=== PATIENT | female | born 1970 | race Caucasian/White ===

== ENCOUNTER 2018-03-03 08:50 | Inpatient (IN) | payer SELFPAY ==
[~2018-03-03] VITALS: Ht 154.9 cm; Wt 78.5 kg
[~2018-03-03 08:50] MED LIST: AUGMENTIN 250-1 EACH PO; CITALOPRAM HBR20 MG PO; DEPAKOTE500 MG PO; DESYREL100 MG PO; DITROPAN XL15 MG PO; DIVALPROEX SOD500 MG PO; FIORICET,ESG1 TABLET PO; FLEXERIL10 MG PO; FLONASE16 G1 BOTH NARES; HA MED; IMITREX6 MG/0.5 M SC; INDERAL80 MG PO; LORTAB 5-500 T1 EAC1 PO; LYRICA150 MG PO; NAPROXEN500 MG PO; PERCOCET 10/1 TABLET PO; PERCOCET 5/31 TABLET PO; PREDNISONE20 MG PO; PROVENTIL HFA6.7 GM IH; TOPAMAX200 MG PO; VALIUM2 MG PO; WELLBUTRIN100 MG PO
[2018-03-03 09:43] LABS: HEMATOCRIT 39.6 % (36.0-46.0); HEMOGLOBIN 13.4 G/DL (11.9-15.5); MCHC 33.8 G/DL (30.0-36.0); MCV 91.7 FL (83-99); PLATELET COUNT 248 K/uL (156-360); RBC DIS.WIDTH-CV 12.6 % (11.8-14.6); RBC DIS.WIDTH-SD 42.2 % (39-53); RED BLOOD COUNT 4.32 M/uL (3.80-5.20); WHITE BLOOD COUNT 7.2 K/uL (4.1-10.2)
[2018-03-03 10:06] LABS: TROP-I INTERPRETATION NEGATIVE; TROPONIN-I < 0.01 ng/mL (0.0-0.30)
[2018-03-03 10:07] LABS: QUANTITATIVE HCG < 4.0 MIU/ML
[2018-03-03 10:15] LABS: CHLORIDE 108 MEQ/L (99-109); CREATININE 0.7 MG/DL (0.6-1.3); GFR ESTIMATE (CALCULATED) > 59 mL/min/; GLUCOSE 109 mg/dL (70-99); POTASSIUM 3.8 MEQ/L (3.7-5.4); SODIUM 141 MEQ/L (136-147); UREA NITROGEN (BUN) 18 mg/dL (9-23)
[2018-03-03] MEDS ORDERED: ADVIL200 MG PO (14:24)
[2018-03-03] MEDS ORDERED: ANTIVERT25 MG PO (14:24)
[2018-03-03 16:45] LABS: TROP-I INTERPRETATION NEGATIVE; TROPONIN-I < 0.01 ng/mL (0.0-0.30)
[2018-03-03 17:02] LABS: HDL CHOLESTEROL 54 MG/DL (Desirable>=50); LDL CHOLESTEROL 92 mg/dL (Desirable<100); NON-HDL CHOLESTEROL 99 mg/dL (Desirable<160); TOTAL CHOLESTEROL 153 mg/dL (Desirable<200); TRIGLYCERIDES 35 MG/DL (Normal: <150)
[2018-03-03 17:38] VITALS: BP 132/62
[2018-03-03 19:29] VITALS: BP 109/65
[2018-03-03 22:23] LABS: TROP-I INTERPRETATION NEGATIVE; TROPONIN-I < 0.01 ng/mL (0.0-0.30)
[2018-03-03 23:50] VITALS: BP 97/59
[2018-03-04 00:22] VITALS: BP 102/57
[2018-03-04 03:22] VITALS: BP 90/53
[2018-03-04 07:48] VITALS: BP 119/67
[2018-03-04 09:34] LABS: HEMOGLOBIN A1c (GLYCOHEMOGLOB) 5.3 % (Below 5.7)
[2018-03-04 11:57] VITALS: BP 118/60
[2018-03-04 15:56] VITALS: BP 114/61
[2018-03-04 19:49] VITALS: BP 116/57
[2018-03-05 00:18] VITALS: BP 112/58
[2018-03-05 03:56] VITALS: BP 112/58
[2018-03-05 07:29] LABS: CHLORIDE 108 MEQ/L (99-109); CREATININE 0.7 MG/DL (0.6-1.3); GFR ESTIMATE (CALCULATED) > 59 mL/min/; GLUCOSE 115 mg/dL (70-99); POTASSIUM 4.3 MEQ/L (3.7-5.4); SODIUM 139 MEQ/L (136-147); UREA NITROGEN (BUN) 16 mg/dL (9-23)
[2018-03-05 07:33] VITALS: BP 125/56
[2018-03-05] MEDS ORDERED: ASPIR-LOW81 MG PO (10:50)
== END 2018-03-05 12:46 | disposition home or self-care (01) | DRG 74 ==
LOC: EME 08:50 → 5SOUTH 14:58 → EDOF 14:58 → ENRESERV 15:23 → 5SOUTH 17:08
PROVIDERS: Emergency Medicine; Physician Assistant
DX: M54.12 Radiculopathy, cervical region (principal); R07.89 Other chest pain; I95.9 Hypotension, unspecified
CPT/HCPCS: 70450; 70460; 70496; 70498; 71045; 80048; 80061; 83036; 84484; 84702; 85027; 93005; 93306; 93880; 99281; 99285; J1200; J1650; J2270; J2930; J7030; S0028